=== PATIENT | female | born 1975 | race Two or more races ===

== ENCOUNTER 2018-12-14 07:59 | Emergency (ER) | payer SELFPAY ==
[~2018-12-14] VITALS: Ht 157.5 cm; Wt 97.5 kg
[2018-12-14 08:12] VITALS: BP 151/95
[2018-12-14 08:57] LABS: Urine Bacteria FEW /hpf (None Seen); Urine Blood 3+ /uL (Negative); Urine Mucus FEW (None Seen); Urine Specific Gravity 1.028 (1.001-1.035); Urine WBC 54 /hpf (0 - 5)
== END 2018-12-14 12:00 | disposition home or self-care (01) ==
LOC: ER 08:02
DX: O23.41 Unspecified infection of urinary tract in pregnancy, first trimester (principal); Z3A.01 Less than 8 weeks gestation of pregnancy
CPT/HCPCS: 36415; 76801; 81001; 84702

== ENCOUNTER 2018-12-21 09:03 | Emergency (ER) | payer MEDICAID, OTHER ==
[~2018-12-21] VITALS: Ht 157.5 cm; Wt 98.4 kg
[2018-12-21 10:33] VITALS: BP 151/92
== END 2018-12-21 10:49 | disposition home or self-care (01) ==
LOC: ER 09:03
DX: O26.891 Other specified pregnancy related conditions, first trimester (principal); N89.8 Other specified noninflammatory disorders of vagina; Z3A.01 Less than 8 weeks gestation of pregnancy
CPT/HCPCS: 36415; 84702